=== PATIENT | male | born 1980 | race Caucasian/White ===

== ENCOUNTER 2022-09-27 10:08 | Emergency (ER) | payer OTHER, SELFPAY ==
--- NOTE | ~2022-09-27 | XR_ITS ---
XR foot RT min 3V 09/27/2022 10:27 INDICATION: Bruising swelling of the right lateral foot. PROCEDURE: 4 views right foot COMPARISON: No prior studies for comparison. FINDINGS: Fracture, dislocation or subluxation is not identified. There are avulsion fractures of the lateral margin of the cuboid and navicular bones. There is associ ated soft tissue swelling. Lisfranc joint is intact. The soft tissues appear within normal limits. N o foreign bodies are identified. IMPRESSION: 1: Acute avulsion fractures lateral margin of the cuboid and navicular bones. Reviewed, dictated and finalized at location [facility] [employer]
--- NOTE | 2022-09-27 10:17 | ED.LOWEXIN ---
HPI - Extremity Injury (Lower) General Chief Complaint: Extremity Injury, Lower Stated Complaint: rt ankle injury Time Seen by Provider: 09/27/22 10:17 Source: patient and RN notes reviewed History of Present Illness HPI Narrative: Patient is a 42-year-old male who presents to urgent care with complaints of right foot pain after rolling it last night while running outside. Patient has been using the Rigoberto wrap and ice. No other acute complaints or injuries. No acute distress noted. Patient aware of the plan of care. Some parts of this dictation were generated by voice recognition software and may contain typographical and/or grammatical inaccuracies. Related Data Home Medications Medication Instructions Recorded Confirmed No Home Medications 09/27/22 09/27/22 Allergies Allergy/AdvReac Type Severity Reaction Status Date / Time No Known Allergies Allergy Verified 09/27/22 10:19 Review of Systems Review of Systems: CONSTITUTIONAL: Denies fever, chills, or sweats. EYES: Denies visual changes, redness, or discharge. ENT: Denies rhinorrhea, congestion, sore throat, or otalgia. CARDIOVASCULAR: Denies chest pain, palpitations, or edema. RESPIRATORY: Denies cough or dyspnea. GASTROINTESTINAL: Denies abdominal pain, nausea, vomiting, or diarrhea. GENITOURINARY: Denies dysuria or hematuria. SKIN: Denies rash or itching. MUSCULOSKELETAL: Reports right foot pain, bruising and swelling NEUROLOGIC: Denies headache, numbness, or weakness. All other systems reviewed are negative, except as documented in HPI. PMFSH Comments At the time of my signature, I reviewed and agree with the nursing past medical, surgical, social, and family history. There is no relevant family history pertinent to the patient complaint. Exam Narrative: GENERAL: This is a well-nourished, well-developed patient, in no apparent distress. HEAD: normocephalic, atraumatic. EYES: PERRL. Sclera clear/white. Vision is grossly intact. EARS: External ears normal NOSE: External nose normal with no obvious nasal discharge, nares without redness, no rhinorrhea. THROAT: Mucous membranes moist NECK: Neck supple SKIN: warm, intact with no suspicious lesions or rash, good texture and turgor. NEURO: awake, alert, and oriented to person, place and time. There were no obvious focal neurologic abnormalities. EXTREMITIES: Mild ecchymosis and edema noted to the lateral right dorsal foot with mild tenderness. Range of motion within normal limits to right lower extremity. Exacerbated pain on weight-bearing. Positive strong right pedal pulse with capillary refill less than 2 seconds. Course Course Level of Care: Express Care Visit Vital Signs Vital signs: Vital Signs Temperature 97.5 F L 09/27/22 10:18 Pulse Rate 52 L 09/27/22 10:18 Respiratory Rate 16 09/27/22 10:18 Blood Pressure 132/88 09/27/22 10:18 Pulse Oximetry 100 09/27/22 10:18 Oxygen Delivery Room Air 09/27/22 10:18 Temperature 97.5 F L 09/27/22 10:18 Pulse Rate 52 L 09/27/22 10:18 Respiratory Rate 16 09/27/22 10:18 Blood Pressure 132/88 09/27/22 10:18 Pulse Oximetry 100 09/27/22 10:18 Oxygen Delivery Room Air 09/27/22 10:18 Reviewed Procedures Orthopedic Splinting/Casting Injury #1: Lower Extremity Injury Location: foot OCL: short leg Pre-Procedure Neuro Vascular Exam: normal Post-Procedure Neuro Vascular Exam: normal Additional Comments: Short-leg posterior OCL placed to right lower extremity for right cuboid/navicular fractures. Applied by video game technician. Neurovascular exam within normal limits pre and postprocedure. Patient instructed on the use of crutches and driving. Patient verbalizes his understanding. MDM - Extremity Injury (Lower) MDM Narrative Medical decision making narrative: Reviewed x-ray results with the patient. He is aware that there are 2 small avulsion fractures in the foot/ankle. Advised patient to artis
[2022-09-27 10:18] VITALS: BP 132/88; PULSE 52; RESP 16; TEMP 36.4; O2SAT 100
== END 2022-09-27 10:52 | disposition home or self-care (01) ==
PROVIDERS: Emergency Provider Nurse Practitioner Family; PCP Family Medicine
DX: S92.254A Nondisplaced fracture of navicular [scaphoid] of right foot, initial encounter for closed fracture (principal); S92.214A Nondisplaced fracture of cuboid bone of right foot, initial encounter for closed fracture; X50.0XXA Overexertion from strenuous movement or load, initial encounter; Y93.02 Activity, running
CPT/HCPCS: 29515; 73630; 99214; G0463

== ENCOUNTER 2024-08-01 07:58 | Outpatient (CLI) | payer OTHER, SELFPAY ==
[2024-08-01 14:49] LABS: Alanine Aminotransferase 23 U/L (6-50); Albumin Level 4.4 g/dL (3.5-5.1); Alkaline Phosphatase 69 U/L (38-126); Anion Gap 9 mmol/L (4-12); Aspartate Amino Transferase 62 U/L (17-59); Bilirubin,Total 0.5 mg/dL (0.2-1.3); Blood Urea Nitrogen 28 mg/dL (9-20); Calcium 9.2 mg/dL (8.4-10.2); Carbon Dioxide 29 mmol/L (22-30); Chloride 100 mmol/L (98-107); Cholesterol 199 mg/dL (0-200); Estimated Glomerular Filt Rate > 60; Glucose 79 mg/dL (65-110); HDL Direct 58 mg/dL; Potassium 4.5 mmol/L (3.4-5.0); Sodium 138 mmol/L (137-145); Triglycerides 149 mg/dL (<150)
[2024-08-01 15:01] LABS: LDL Cholesterol Direct 83 mg/dL
== END 2024-08-01 07:59 | disposition home or self-care (01) ==
LOC: ANHGOSHLAB 08:00
PROVIDERS: PCP Family Medicine; Visit Provider Family Medicine
DX: Z13.6 Encounter for screening for cardiovascular disorders (principal)
CPT/HCPCS: 36415; 80053; 80061

== ENCOUNTER 2024-11-21 07:56 | Outpatient (CLI) | payer OTHER, SELFPAY ==
--- OUTSIDE RECORDS SUMMARY | 2024-11-21 08:03 | XMS_ITS | Clinical Summary ---
Author Organization [facility] Address [address] [place] [address] Care Team Providers Care Real Estate Processor Name Role Phone Unavailable Primary Care Provider Unavailabl e Allergies No known active allergies Medications azithromycin (ZITHROMAX) 250 mg tablet TAKE 2 TABLETS BY MOUTH A SINGLE DOSE ON DAY 1, THEN TAKE 1 TABLET BY MOUTH ON DAYS 2 THRU 5. 6 Tablet 05/23/2024 6:54 PM CDT 05/23/2024 Active triamcinolone acetonide (KENALOG) 0.1 % Cream Apply to the affected area four times daily 80 Gram 07/29/2024 2:34 PM CDT 07/25/2024 Active Encounters Date Type Department Care Team Description 11/13/2024 External Device Data [facility] Provider, Abstract 11/13/2024 External Device Data [facility] Provider, Abstract from Last 3 Months Social History Tobacco Use Types Packs/Day Years Used Date Smoking Tobacco: Never Assessed Sex and Gender Information Value Date Recorded Sex Assigned at Not on file Legal Sex Male 4:46 PM CDT Gender Identity Not on file Sexual Orientation Not on file Plan of Treatment Health Maintenance Due Date Last Done Comments DTAP/TDAP/TD VACCINES (1 - Tdap) 2000 HEPATITIS B VACCINES (1 of 3 - 19+ 3-dose series) 2000 INFLUENZA VACCINE (#1) 2024 HPV VACCINES Aged Out No longer eligi ble based on patient's age to complete this topic PNEUMOCOCCAL VACCINE 0-64 YEARS Aged Out No longer eligible based on patient's age to complete this topic Insurance RX [employer] Member Subscriber Plan / Payer (Ef fective 2024-Present) Name:Chaparro Pratt Relation to Subscriber:Self Name:Chaparro Pratt Subscriber ID:Not on file Payer ID:Not on file Type:RX Commercial Address: [address]
--- OUTSIDE RECORDS SUMMARY | 2024-11-21 08:03 | XMS_ITS | Clinical Summary ---
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 Gender Identity Not on file Sexual Orientation Not on file Obstetrics History Last Filed Vital Signs Vital Sign Reading Time Taken Comments Blood Pressure 133/84 03/07/2022 11:14 AM CDT Pulse 50 03/07/2022 11:14 AM CDT Temperature 37.3 ??C (99.2 ??F) 03/07/2022 11:14 AM C DT Respiratory Rate 16 03/07/2022 11:14 AM CDT Oxygen Saturation 99% 03/07/2022 11:14 AM CDT Inhaled Oxygen Concentration - - Weight 64.4 kg (142 lb) 03/07/2022 11:14 AM CDT Height - - Body Mass Index - - Plan of Treatment Health Maintenance Due Date Last Done Comments Depression Screening 1981 Hepatitis C Screening 1981 DTaP/Tdap/Td Vaccine (1 - Tdap) 1992 Varicella Vaccines (1 of 2 - 13+ 2-dose series) 1994 Hepatitis B Screening 1999 Regular Well Visit/Exam 18-64 1999 Covid-19 Vaccine (2 2023-2 5 season) 2024 10/11/2021 Influenza Vaccine (#1) 2024 HPV Vaccines Aged Out No longer eligi ble based on patient's age to complete this topic Pneumococcal vaccine <65 Aged Out No longer eligible based on patient's age to complete this topic Insurance [employer] Care Teams Towel Weaver Relationship Specialty Start Date End Date Manjit Nava MD PCP - General Family Medicine 03/07/22
--- OUTSIDE RECORDS SUMMARY | 2024-11-21 08:03 | XMS_ITS | Referral Summary ---
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
--- OUTSIDE RECORDS SUMMARY | 2024-11-21 08:03 | XMS_ITS | Clinical Summary ---
Author Organization [facility] Address [address] [place] [address]. [place] [address] [place] [address] Care Team Providers Care Driller Hand Name Role Phone Unavailable Primary Care Provider Unavailabl e Social History Tobacco Use Types Packs/Day Years Used Date Smoking Tobacco: Never Assessed Sex and Gender Information Value Date Recorded Sex Assigned at Not on file Legal Sex Male 5:31 PM CDT Gender Identity Not on file Sexual Orientation Not on file Plan of Treatment Health Maintenance Due Date Last Done Comments Annual Physical 1984 Hepatitis C 1999 DTaP, Tdap and Td Vaccines ( 1 - Tdap) 2000 Hepatitis B Vaccines (1 of 3 - 19+ 3-dose series) 2000 COVID-19 Vaccine (2023-2 5 season) 2024 Influenza Adult (#1) 2024 HPV Vaccines Aged Out No longer eligi ble based on patient's age to complete this topic Meningococcal B Vaccine Aged Out No l onger eligible based on patient's age to complete this topic Meningococcal Vaccine Aged Out No kera afshan eligible based on patient's age to complete this topic Pneumococcal Vaccine: Pediat rics (0 to 5 Years) and At-Risk Patients (6 to 64 Years) Aged Out No longer eligible b ased on patient's age to complete this topic RSV Immunizations Under 20 Months Aged Out No longer eligible based on patient's age to complete this topic
[2024-11-21 16:59] LABS: Alanine Aminotransferase 24 U/L (6-50); Albumin Level 4.6 g/dL (3.5-5.1); Alkaline Phosphatase 64 U/L (38-126); Anion Gap 9 mmol/L (4-12); Aspartate Amino Transferase 40 U/L (17-59); Bilirubin,Total 0.7 mg/dL (0.2-1.3); Blood Urea Nitrogen 27 mg/dL (9-20); Calcium 9.5 mg/dL (8.4-10.2); Carbon Dioxide 29 mmol/L (22-30); Chloride 102 mmol/L (98-107); Cholesterol 183 mg/dL (0-200); Estimated Glomerular Filt Rate > 60; Glucose 87 mg/dL (65-110); HDL Direct 60 mg/dL; Potassium 4.8 mmol/L (3.4-5.0); Sodium 140 mmol/L (137-145); Triglycerides 84 mg/dL (<150)
[2024-11-21 17:17] LABS: LDL Cholesterol Direct 93 mg/dL
[2024-11-21 17:21] LABS: Hepatitis B Surface Antigen Negative (Negative)
[2024-11-21 17:26] LABS: HAV RESULT Negative (Negative); Hepatitis B Core IgM Result Negative (Negative)
[2024-11-21 17:38] LABS: Hepatitis C Virus Antibody Negative (Negative)
== END 2024-11-21 07:57 | disposition home or self-care (01) ==
LOC: ANHGOSHLAB 07:58
PROVIDERS: PCP Family Medicine; Visit Provider Family Medicine
DX: Z13.6 Encounter for screening for cardiovascular disorders (principal); R74.01 Elevation of levels of liver transaminase levels
CPT/HCPCS: 36415; 80053; 80061; 80074; 82248

== ENCOUNTER 2025-09-24 11:48 | Outpatient (CLI) | payer OTHER, SELFPAY ==
--- NOTE | ~2025-09-24 | XR_ITS ---
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 Soft tissues unremarkable Impression: No acute abnormality. Reviewed, dictated and finalized at location [facility]. [facility] Impression: No acute abnormality.
== END 2025-09-24 11:49 | disposition home or self-care (01) ==
LOC: GOSHIMG 11:49
PROVIDERS: PCP Family Medicine; Visit Provider Family Medicine
DX: M54.12 Radiculopathy, cervical region (principal)
CPT/HCPCS: 72050